=== PATIENT | male | born 1930 | race Caucasian/White ===

== ENCOUNTER → 2016-10-26 | Outpatient (CLI) | payer MEDICARE, OTHER ==
[~2016-10-26] MED LIST: CLOP75TA28 PO; SIMV5TAB38 PO; TAM04C PO; ZOLP-158 PO
[2016-10-26 09:00] LABS: Basophils # (auto) 0.2 uL; Basophils % (auto) 2.7 % (0.0-2.0); DEFINITIVE VIEW TRANSMISSION; Eosinophils # (auto) 0.4 uL; Eosinophils % (auto) 4.9 % (0.0-7.0); Hematocrit 37.7 % (41.0-53.0); Hemoglobin 12.1 g/dL (13.5-17.5); Lymphocytes # (auto) 1.4 uL; Lymphocytes % (auto) 17.1 % (10.0-50.0); Mean Corpuscular Hemoglobin 28.2 pg (28.0-32.0); Mean Corpuscular Volume 88.2 fL (80.0-100.0); Mean Platelet Volume 8.1 fL (7.4-10.4); Monocytes # (auto) 0.5 uL; Monocytes % (auto) 6.1 % (0.0-12.0); Neutrophils # (auto) 5.6 uL; Neutrophils % (auto) 69.2 % (37.0-80.0); Platelet Count (auto) 238 10^3/uL (140-450); SUSPECT VIEW TRANSMISSION; White Blood Cell 8.1 10^3/uL (4.4-10.8)
[2016-10-26 09:23] LABS: Albumin 3.9 g/dL (3.4-5.0); BUN/Creatinine Ratio 18.3; Bilirubin, Total 0.9 mg/dL (0.2-1.0); Calcium 8.7 mg/dL (8.5-10.1); Potassium 4.5 mmol/L (3.5-5.1); Total Protein 7.2 g/dL (6.4-8.2)
[2016-10-26 11:33] LABS: Anisocytosis Moderate; Ovalocytes MODERATE
[2016-10-26 11:34] LABS: Platelet Estimate Adequate
== END | disposition home or self-care (01) ==
LOC: LAB 08:17
PROVIDERS: ATTEND Internal Medicine
DX: D46.9 Myelodysplastic syndrome, unspecified (principal); D45 Polycythemia vera
CPT/HCPCS: 36415; 80053; 83615; 85025

== ENCOUNTER → 2016-11-23 | Outpatient (CLI) | payer MEDICARE, OTHER ==
[2016-11-23 12:05] LABS: Basophils # (auto) 0 uL; Basophils % (auto) 0.4 % (0.0-2.0); DEFINITIVE VIEW TRANSMISSION; Eosinophils # (auto) 0.4 uL; Eosinophils % (auto) 4.3 % (0.0-7.0); Hematocrit 41.5 % (41.0-53.0); Lymphocytes # (auto) 1.4 uL; Lymphocytes % (auto) 16.5 % (10.0-50.0); Mean Corpuscular Hemoglobin 27.5 pg (28.0-32.0); Mean Corpuscular Hgb Conc. 31.2 g/dL (32.0-36.0); Mean Corpuscular Volume 88.2 fL (80.0-100.0); Mean Platelet Volume 8.3 fL (7.4-10.4); Monocytes # (auto) 0.4 uL; Neutrophils # (auto) 6.3 uL; Neutrophils % (auto) 73.8 % (37.0-80.0); Platelet Count (auto) 262 10^3/uL (140-450); SUSPECT VIEW TRANSMISSION; White Blood Cell 8.5 10^3/uL (4.4-10.8)
[2016-11-23 12:21] LABS: Albumin 4.4 g/dL (3.4-5.0); BUN/Creatinine Ratio 19.3; Bilirubin, Total 0.8 mg/dL (0.2-1.0); Calcium 8.8 mg/dL (8.5-10.1); Total Protein 7.6 g/dL (6.4-8.2)
[2016-11-23 12:26] LABS: Potassium 4.3 mmol/L (3.5-5.1)
[2016-11-23 12:30] LABS: Red Cell Distribution Width 25.1 % (11.6-16.0)
[2016-11-23 12:31] LABS: Anisocytosis Slight; Platelet Estimate Adequate
== END | disposition home or self-care (01) ==
LOC: LAB 10:15
PROVIDERS: ATTEND Internal Medicine
DX: D46.9 Myelodysplastic syndrome, unspecified (principal); C61 Malignant neoplasm of prostate; D45 Polycythemia vera
CPT/HCPCS: 36415; 80053; 83615; 85025

== ENCOUNTER → 2017-01-25 | Outpatient (CLI) | payer MEDICARE, OTHER ==
[2017-01-25 10:11] LABS: Basophils # (auto) 0.1 uL; Basophils % (auto) 1.6 % (0.0-2.0); DEFINITIVE VIEW TRANSMISSION; Eosinophils # (auto) 0.4 uL; Eosinophils % (auto) 4.9 % (0.0-7.0); Hematocrit 37.3 % (41.0-53.0); Hemoglobin 12.3 g/dL (13.5-17.5); Lymphocytes # (auto) 1.2 uL; Lymphocytes % (auto) 13.8 % (10.0-50.0); Mean Corpuscular Hemoglobin 29.1 pg (28.0-32.0); Mean Corpuscular Hgb Conc. 33.1 g/dL (32.0-36.0); Mean Platelet Volume 7.9 fL (7.4-10.4); Monocytes # (auto) 0.4 uL; Monocytes % (auto) 4.4 % (0.0-12.0); Neutrophils # (auto) 6.6 uL; Neutrophils % (auto) 75.3 % (37.0-80.0); Platelet Count (auto) 316 10^3/uL (140-450); Red Cell Distribution Width 24.7 % (11.6-16.0); White Blood Cell 8.8 10^3/uL (4.4-10.8)
[2017-01-25 10:52] LABS: Albumin 3.9 g/dL (3.4-5.0); BUN/Creatinine Ratio 13.9; Bilirubin, Total 0.5 mg/dL (0.2-1.0); Calcium 8.4 mg/dL (8.5-10.1); Potassium 4.5 mmol/L (3.5-5.1); Total Protein 7.2 g/dL (6.4-8.2)
== END | disposition home or self-care (01) ==
LOC: LAB 09:45
PROVIDERS: ATTEND Internal Medicine
DX: D46.9 Myelodysplastic syndrome, unspecified (principal); D45 Polycythemia vera
CPT/HCPCS: 36415; 80053; 83615; 85025

== ENCOUNTER → 2017-04-12 | Outpatient (CLI) | payer MEDICARE, OTHER ==
[2017-04-12 09:20] LABS: CONDITION Y; DEFINITIVE SEE PRINTOUT; Eosinophils # (auto) 0.3 uL; Monocytes # (auto) 0.5 uL
[2017-04-12 09:30] LABS: Basophils # (auto) 0.2 uL; Basophils % (auto) 2.4 % (0.0-2.0); Eosinophils % (auto) 3.5 % (0.0-7.0); Hematocrit 38.6 % (41.0-53.0); Hemoglobin 12.6 g/dL (13.5-17.5); Lymphocytes # (auto) 1.7 uL; Lymphocytes % (auto) 19.6 % (10.0-50.0); Mean Corpuscular Hemoglobin 28.6 pg (28.0-32.0); Mean Corpuscular Hgb Conc. 32.8 g/dL (32.0-36.0); Mean Corpuscular Volume 87.4 fL (80.0-100.0); Monocytes % (auto) 5.4 % (0.0-12.0); Neutrophils # (auto) 5.9 uL; Neutrophils % (auto) 69.1 % (37.0-80.0); Platelet Count (auto) 246 10^3/uL (140-450); White Blood Cell 8.5 10^3/uL (4.4-10.8)
[2017-04-12 09:40] LABS: Albumin 3.9 g/dL (3.4-5.0); BUN/Creatinine Ratio 15.5; Bilirubin, Total 0.9 mg/dL (0.2-1.0); Calcium 8.5 mg/dL (8.5-10.1); Potassium 4.7 mmol/L (3.5-5.1); Total Protein 6.7 g/dL (6.4-8.2)
[2017-04-12 09:55] LABS: Red Cell Distribution Width 24.3 % (11.6-16.0)
[2017-04-12 10:38] LABS: Anisocytosis Slight; Ovalocytes FEW; Platelet Estimate Adequate; Polychromasia Slight
== END | disposition home or self-care (01) ==
LOC: LAB 09:05
PROVIDERS: ATTEND Internal Medicine
DX: D45 Polycythemia vera (principal); D46.9 Myelodysplastic syndrome, unspecified
CPT/HCPCS: 36415; 80053; 83615; 85025

== ENCOUNTER → 2017-06-06 | Outpatient (CLI) | payer MEDICARE, OTHER ==
[2017-06-06 09:07] LABS: Urine RBC None Seen /hpf (0 - 3)
[2017-06-06 09:19] LABS: Urine Bilirubin Negative (Negative); Urine Blood Negative /uL (Negative); Urine Color Yellow (Yellow); Urine Glucose 4+ mg/dL (Normal); Urine Ketone Negative (Negative); Urine Mucus FEW (None Seen); Urine Nitrite Negative (Negative); Urine Squamous Epithelial Cell FEW /hpf (<5); Urine Urobilinogen Normal (Negative)
[2017-06-06 11:40] LABS: Cholesterol 123 mg/dL (< 200); LDL Cholesterol 69 mg/dL (< 100); Triglycerides 82 mg/dL (< 150)
[2017-06-06 16:52] LABS: HDL Cholesterol 45 mg/dL (40-59)
== END | disposition home or self-care (01) ==
LOC: LAB 08:16
PROVIDERS: ATTEND Family Medicine
DX: E78.5 Hyperlipidemia, unspecified (principal); N18.3 Chronic kidney disease, stage 3 (moderate); D63.1 Anemia in chronic kidney disease; Z86.73 Personal history of transient ischemic attack (TIA), and cerebral infarction without residual deficits
CPT/HCPCS: 36415; 80061; 81001

== ENCOUNTER → 2017-07-11 | Outpatient (CLI) | payer MEDICARE, OTHER ==
[2017-07-11 10:52] LABS: Hematocrit 38.7 % (41.0-53.0); Hemoglobin 12.7 g/dL (13.5-17.5); Mean Corpuscular Hemoglobin 29.4 pg (28.0-32.0); Mean Corpuscular Hgb Conc. 32.9 g/dL (32.0-36.0); Mean Corpuscular Volume 89.3 fL (80.0-100.0); Platelet Count (auto) 230 10^3/uL (140-450); White Blood Cell 9.2 10^3/uL (4.4-10.8)
[2017-07-11 10:59] LABS: Red Cell Distribution Width 24.4 % (11.8-14.3)
[2017-07-11 11:01] LABS: Metamyelocytes % 0; Myelocytes % 0; Promyelocytes % 0; Reactive Lymphocytes 0
[2017-07-11 11:14] LABS: BUN/Creatinine Ratio 18.3; Bilirubin, Total 0.7 mg/dL (0.2-1.0); Calcium 8.6 mg/dL (8.5-10.1); Potassium 4.3 mmol/L (3.5-5.1); Total Protein 7.1 g/dL (6.4-8.2)
[2017-07-11 15:37] LABS: Platelet Estimate Adequate
[2017-07-11 15:38] LABS: Anisocytosis Moderate; Ovalocytes MODERATE
== END | disposition home or self-care (01) ==
LOC: LAB 10:30
PROVIDERS: ATTEND Internal Medicine
DX: Z13.29 Encounter for screening for other suspected endocrine disorder (principal); D46.9 Myelodysplastic syndrome, unspecified; D45 Polycythemia vera; N18.3 Chronic kidney disease, stage 3 (moderate); D63.1 Anemia in chronic kidney disease; C18.9 Malignant neoplasm of colon, unspecified
CPT/HCPCS: 36415; 80053; 82378; 83615; 85007; 85027

== ENCOUNTER → 2017-10-05 | Outpatient (CLI) | payer MEDICARE, OTHER ==
[2017-10-05 13:55] LABS: Basophils # (auto) 0.3 uL; Basophils % (auto) 3.2 % (0.0-2.0); Eosinophils # (auto) 0.3 uL; Eosinophils % (auto) 3.5 % (0.0-7.0); Hematocrit 39.7 % (41.0-53.0); Hemoglobin 13.2 g/dL (13.5-17.5); Lymphocytes # (auto) 1.3 uL; Lymphocytes % (auto) 15.5 % (10.0-50.0); Mean Corpuscular Hemoglobin 29.1 pg (28.0-32.0); Mean Corpuscular Hgb Conc. 33.4 g/dL (32.0-36.0); Mean Corpuscular Volume 87.2 fL (80.0-100.0); Mean Platelet Volume 7.5 fL (6.9-10.8); Monocytes # (auto) 0.6 uL; Monocytes % (auto) 7.6 % (0.0-12.0); Neutrophils % (auto) 70.2 % (37.0-80.0); Nucleated Red Blood Cells % 0.5 %; Platelet Count (auto) 220 10^3/uL (140-450); White Blood Cell 8.5 10^3/uL (4.4-10.8)
[2017-10-05 14:03] LABS: Red Cell Distribution Width 24.6 % (11.8-14.3)
[2017-10-05 14:25] LABS: Albumin 4.1 g/dL (3.4-5.0); BUN/Creatinine Ratio 18.1; Bilirubin, Total 0.8 mg/dL (0.2-1.0); Calcium 8.5 mg/dL (8.5-10.1); Total Protein 7.1 g/dL (6.4-8.2)
[2017-10-05 14:32] LABS: Platelet Estimate Adequa
[2017-10-05 14:46] LABS: Anisocytosis Slight
== END | disposition home or self-care (01) ==
LOC: LAB 13:34
PROVIDERS: ATTEND Internal Medicine
DX: C16.1 Malignant neoplasm of fundus of stomach (principal)
CPT/HCPCS: 36415; 80053; 83615; 85025

== ENCOUNTER → 2017-12-21 | Day surgery (SDC) | payer MEDICARE, OTHER ==
[2017-12-18 16:20] LABS: Basophils # (auto) 0.4 uL; Eosinophils # (auto) 0.4 uL; Eosinophils % (auto) 3.9 % (0.0-7.0); Hematocrit 40.9 % (41.0-53.0); Hemoglobin 13.7 g/dL (13.5-17.5); Lymphocytes # (auto) 1.2 uL; Lymphocytes % (auto) 13.9 % (10.0-50.0); Mean Corpuscular Hemoglobin 29.3 pg (28.0-32.0); Mean Corpuscular Hgb Conc. 33.6 g/dL (32.0-36.0); Mean Corpuscular Volume 87.4 fL (80.0-100.0); Monocytes # (auto) 0.8 uL; Monocytes % (auto) 8.8 % (0.0-12.0); Neutrophils # (auto) 6.2 uL; Neutrophils % (auto) 69.4 % (37.0-80.0); Nucleated Red Blood Cells % 0.5 %; Platelet Count (auto) 236 10^3/uL (140-450); Red Blood Cells 4.69 10^6/uL (4.5-5.90); White Blood Cell 8.9 10^3/uL (4.4-10.8)
[2017-12-18 16:24] LABS: Red Cell Distribution Width 24.4 % (11.8-14.3)
[2017-12-18 16:40] LABS: INR 0.96 (0.9-1.15); Prothrombin Time 10.5 sec (9.37-12.3)
[~2017-12-21] VITALS: Ht 177.8 cm; Wt 83.9 kg
[~2017-12-21] MED LIST changes: +DORZ1SOL2 OP; +LATA0.0015 EACHEYE; +MIDAZOLAM HCL 5 MG/ML-1ML VIAL ONE; +SIMV20TA90 PO; -SIMV5TAB38 PO; +SODIUM CHLORIDE LOCK 10 ML ONE; +TADA20TA PO; -ZOLP-158 PO; +ZOLP10TA PO; +diphenhdrAMINE HCL 50 MG/1 ML VL ONE; +fentaNYL CITRATE 100 MCG/2 ML VL ONE
[2017-12-21 10:33] VITALS: BP 135/75
== END | disposition home or self-care (01) ==
LOC: GI 08:11
PROVIDERS: ATTEND Internal Medicine Gastroenterology
DX: Z08 Encounter for follow-up examination after completed treatment for malignant neoplasm (principal); K57.30 Diverticulosis of large intestine without perforation or abscess without bleeding; Z85.038 Personal history of other malignant neoplasm of large intestine; Z88.1 Allergy status to other antibiotic agents; Z90.49 Acquired absence of other specified parts of digestive tract; E66.9 Obesity, unspecified; H40.9 Unspecified glaucoma; N18.2 Chronic kidney disease, stage 2 (mild); Z88.0 Allergy status to penicillin
CPT/HCPCS: 36415; 45380; 85025; 85610; J1200; J2250; J3010; 99152

== ENCOUNTER → 2018-01-02 | Outpatient (CLI) | payer MEDICARE, OTHER ==
[~2018-01-02] MED LIST changes: -MIDAZOLAM HCL 5 MG/ML-1ML VIAL ONE; -SODIUM CHLORIDE LOCK 10 ML ONE; -diphenhdrAMINE HCL 50 MG/1 ML VL ONE; -fentaNYL CITRATE 100 MCG/2 ML VL ONE
[2018-01-02 10:36] LABS: Hematocrit 39.9 % (41.0-53.0); Hemoglobin 13.5 g/dL (13.5-17.5); Mean Corpuscular Hemoglobin 28.7 pg (28.0-32.0); Mean Corpuscular Hgb Conc. 33.8 g/dL (32.0-36.0); Mean Corpuscular Volume 84.9 fL (80.0-100.0); Platelet Count (auto) 301 10^3/uL (140-450); White Blood Cell 8.2 10^3/uL (4.4-10.8)
[2018-01-02 10:46] LABS: Red Cell Distribution Width 24.8 % (11.8-14.3)
[2018-01-02 10:53] LABS: Basophils % (manual) 0 (0.0-2.0); Metamyelocytes % 0; Myelocytes % 0; Promyelocytes % 0; Reactive Lymphocytes 0
[2018-01-02 10:54] LABS: Blast Cells 0
[2018-01-02 11:10] LABS: Albumin 4.3 g/dL (3.4-5.0); BUN/Creatinine Ratio 15.3; Bilirubin, Total 0.6 mg/dL (0.2-1.0); Calcium 8.7 mg/dL (8.5-10.1); Potassium 4.6 mmol/L (3.5-5.1); Total Protein 7.7 g/dL (6.4-8.2)
[2018-01-02 14:59] LABS: Band Neutrophils % (manual) 6; Eosinophils % (manual) 5 (0-7); Lymphocytes % (manual) 23 (10.0-50.0); Monocytes % (manual) 6 (0-12)
== END | disposition home or self-care (01) ==
LOC: LAB 10:15
PROVIDERS: ATTEND Internal Medicine
DX: C61 Malignant neoplasm of prostate (principal)
CPT/HCPCS: 36415; 80053; 83615; 85007; 85027

== ENCOUNTER → 2018-04-10 | Outpatient (CLI) | payer MEDICARE, OTHER ==
[2018-04-10 10:06] LABS: Hematocrit 39.7 % (41.0-53.0); Hemoglobin 13.2 g/dL (13.5-17.5); Mean Corpuscular Hemoglobin 27.6 pg (28.0-32.0); Mean Corpuscular Hgb Conc. 33.1 g/dL (32.0-36.0); Mean Corpuscular Volume 83.2 fL (80.0-100.0); Platelet Count (auto) 202 10^3/uL (140-450); Red Blood Cells 4.77 10^6/uL (4.5-5.90); White Blood Cell 7.8 10^3/uL (4.4-10.8)
[2018-04-10 10:13] LABS: Basophils % (manual) 0 (0.0-2.0); Blast Cells 0; Metamyelocytes % 0; Myelocytes % 0; Promyelocytes % 0; Reactive Lymphocytes 0
[2018-04-10 10:25] LABS: Band Neutrophils % (manual) 2; Eosinophils % (manual) 1 (0-7); Lymphocytes % (manual) 15 (10.0-50.0); Monocytes % (manual) 4 (0-12)
[2018-04-10 11:25] LABS: BUN/Creatinine Ratio 16.8; Bilirubin, Total 0.7 mg/dL (0.2-1.0); Calcium 8.6 mg/dL (8.5-10.1); Potassium 4.8 mmol/L (3.5-5.1); Total Protein 7.2 g/dL (6.4-8.2)
== END | disposition home or self-care (01) ==
LOC: LAB 09:22
PROVIDERS: ATTEND Internal Medicine
DX: C61 Malignant neoplasm of prostate (principal); N18.3 Chronic kidney disease, stage 3 (moderate)
CPT/HCPCS: 36415; 80053; 83615; 85007; 85027

== ENCOUNTER → 2018-07-03 | Outpatient (CLI) | payer MEDICARE, OTHER ==
[2018-07-03 09:16] LABS: Urine Bacteria NONE SEEN /hpf (None Seen); Urine Blood Negative /uL (Negative); Urine Mucus FEW (None Seen); Urine Specific Gravity 1.038 (1.001-1.035); Urine WBC <1 /hpf (0 - 3)
[2018-07-03 09:17] LABS: Basophils # (auto) 0.2 uL; Basophils % (auto) 3.3 % (0.0-2.0); Eosinophils # (auto) 0.2 uL; Eosinophils % (auto) 2.3 % (0.0-7.0); Hematocrit 38.3 % (41.0-53.0); Hemoglobin 13.1 g/dL (13.5-17.5); Lymphocytes # (auto) 0.9 uL; Lymphocytes % (auto) 13.3 % (10.0-50.0); Mean Corpuscular Hgb Conc. 34.1 g/dL (32.0-36.0); Monocytes # (auto) 0.6 uL; Neutrophils # (auto) 5.2 uL; Neutrophils % (auto) 73.1 % (37.0-80.0); Nucleated Red Blood Cells % 0.3 %; Platelet Count (auto) 134 10^3/uL (140-450); Red Blood Cells 4.67 10^6/uL (4.5-5.90); White Blood Cell 7.1 10^3/uL (4.4-10.8)
[2018-07-03 09:23] LABS: Red Cell Distribution Width 24.9 % (11.8-14.3)
[2018-07-03 11:30] LABS: BUN/Creatinine Ratio 16.3; Bilirubin, Total 0.9 mg/dL (0.2-1.0); Calcium 8.8 mg/dL (8.5-10.1); Potassium 4.8 mmol/L (3.5-5.1); Total Protein 7.3 g/dL (6.4-8.2)
== END | disposition home or self-care (01) ==
LOC: LAB 08:48
PROVIDERS: ATTEND Internal Medicine
DX: C61 Malignant neoplasm of prostate (principal); I10 Essential (primary) hypertension; D46.9 Myelodysplastic syndrome, unspecified; C18.9 Malignant neoplasm of colon, unspecified
CPT/HCPCS: 36415; 80053; 80061; 81001; 83615; 84153; 84154; 85025

== ENCOUNTER → 2018-08-12 | Outpatient (CLI) | payer MEDICARE, OTHER ==
[2018-08-12 12:51] LABS: Hemoglobin 11.7 g/dL (13.5-17.5); Mean Corpuscular Hemoglobin 27.2 pg (28.0-32.0); Mean Corpuscular Hgb Conc. 33.4 g/dL (32.0-36.0); Mean Corpuscular Volume 81.5 fL (80.0-100.0); Platelet Count (auto) 152 10^3/uL (140-450); White Blood Cell 7.4 10^3/uL (4.4-10.8)
[2018-08-12 12:56] LABS: Red Cell Distribution Width 25.4 % (11.8-14.3)
[2018-08-12 12:57] LABS: Basophils % (manual) 0 (0.0-2.0); Blast Cells 0; Myelocytes % 0; Promyelocytes % 0; Reactive Lymphocytes 0
[2018-08-12 13:00] LABS: Potassium 4.4 mmol/L (3.5-5.1)
[2018-08-12 13:26] LABS: Albumin 3.8 g/dL (3.4-5.0); BUN/Creatinine Ratio 16.8; Bilirubin, Total 0.9 mg/dL (0.2-1.0); Calcium 8.7 mg/dL (8.5-10.1); Total Protein 7.8 g/dL (6.4-8.2)
[2018-08-12 13:33] LABS: Band Neutrophils % (manual) 2; Eosinophils % (manual) 2 (0-7); Lymphocytes % (manual) 11 (10.0-50.0); Metamyelocytes % 1; Monocytes % (manual) 3 (0-12)
== END | disposition home or self-care (01) ==
LOC: LAB 11:13
PROVIDERS: ATTEND Internal Medicine
DX: D45 Polycythemia vera (principal); Z85.46 Personal history of malignant neoplasm of prostate
CPT/HCPCS: 36415; 80053; 82378; 83615; 85007; 85027

== ENCOUNTER → 2018-09-23 | Outpatient (CLI) | payer MEDICARE, OTHER ==
[2018-09-23 12:51] LABS: INR 1.03 (0.9-1.15)
[2018-09-23 12:53] LABS: Red Blood Cells 4.36 10^6/uL (4.5-5.90)
[2018-09-23 12:55] LABS: Hematocrit 34.5 % (41.0-53.0); Hemoglobin 11.5 g/dL (13.5-17.5); Mean Corpuscular Hemoglobin 26.4 pg (28.0-32.0); Mean Corpuscular Hgb Conc. 33.3 g/dL (32.0-36.0); Mean Corpuscular Volume 79.1 fL (80.0-100.0); Platelet Count (auto) 213 10^3/uL (140-450); White Blood Cell 6.1 10^3/uL (4.4-10.8)
[2018-09-23 13:17] LABS: Potassium 4.7 mmol/L (3.5-5.1)
[2018-09-23 13:32] LABS: Albumin 3.8 g/dL (3.4-5.0); BUN/Creatinine Ratio 14.4; Bilirubin, Total 0.9 mg/dL (0.2-1.0); Calcium 8.7 mg/dL (8.5-10.1); Total Protein 7.2 g/dL (6.4-8.2)
[2018-09-23 13:42] LABS: Red Cell Distribution Width 25.9 % (11.8-14.3)
[2018-09-23 13:44] LABS: Basophils % (manual) 0 (0.0-2.0); Blast Cells 0; Metamyelocytes % 0; Myelocytes % 0; Promyelocytes % 0; Reactive Lymphocytes 0
[2018-09-23 14:39] LABS: Band Neutrophils % (manual) 5; Eosinophils % (manual) 4 (0-7); Lymphocytes % (manual) 14 (10.0-50.0); Monocytes % (manual) 2 (0-12)
== END | disposition home or self-care (01) ==
LOC: LAB 11:39
PROVIDERS: ATTEND Internal Medicine
DX: D45 Polycythemia vera (principal)
CPT/HCPCS: 36415; 80053; 83615; 85007; 85027; 85610; 85730

== ENCOUNTER → 2018-11-14 | Outpatient (CLI) | payer MEDICARE, OTHER ==
[2018-11-14 10:02] LABS: Hemoglobin 11.8 g/dL (13.5-17.5)
[2018-11-14 10:05] LABS: Hematocrit 35.1 % (41.0-53.0); Mean Corpuscular Hemoglobin 25.8 pg (28.0-32.0); Mean Corpuscular Hgb Conc. 33.7 g/dL (32.0-36.0); Mean Corpuscular Volume 76.5 fL (80.0-100.0); Platelet Count (auto) 55 10^3/uL (140-450); Red Blood Cells 4.59 10^6/uL (4.5-5.90); White Blood Cell 7.7 10^3/uL (4.4-10.8)
[2018-11-14 10:20] LABS: Basophils % (manual) 0 (0.0-2.0); Blast Cells 0; Metamyelocytes % 0; Myelocytes % 0; Promyelocytes % 0; Reactive Lymphocytes 0
[2018-11-14 10:21] LABS: Urine Bacteria NONE SEEN /hpf (None Seen); Urine Blood Negative /uL (Negative); Urine Hyaline Cast FEW /lpf (0 - 2); Urine Mucus FEW (None Seen); Urine Specific Gravity 1.033 (1.001-1.035); Urine WBC 1 /hpf (0 - 3)
[2018-11-14 10:47] LABS: Chloride 110 mmol/L (98-107); Potassium 4.6 mmol/L (3.5-5.1); Sodium 140 mmol/L (136-145)
[2018-11-14 11:00] LABS: Alanine Aminotransferase 20 U/L (16-61); Albumin 3.9 g/dL (3.4-5.0); Alkaline Phosphatase 65 U/L (45-117); Anion Gap 6 (5-15); Aspartate Aminotransferase 17 U/L (15-37); BUN/Creatinine Ratio 17.8; Bilirubin, Total 0.7 mg/dL (0.2-1.0); Blood Urea Nitrogen 24 mg/dL (7-18); Calcium 8.8 mg/dL (8.5-10.1); Carbon Dioxide 24 mmol/L (21-32); Cholesterol 146 mg/dL (< 200); GFR Non-African American 53 mL/min; Glucose 107 mg/dL (74-106); HDL Cholesterol 50 mg/dL (40-59); LDL Cholesterol 82 mg/dL (< 100); Lactate Dehydrogenase 300 U/L (87-241); Total Protein 7.1 g/dL (6.4-8.2); Triglycerides 147 mg/dL (< 150)
[2018-11-14 11:03] LABS: GFR African American > 60 mL/min
[2018-11-14 11:45] LABS: Band Neutrophils % (manual) 3; Eosinophils % (manual) 2 (0-7); Lymphocytes % (manual) 23 (10.0-50.0); Monocytes % (manual) 6 (0-12)
== END | disposition home or self-care (01) ==
LOC: LAB 09:21
PROVIDERS: ATTEND Internal Medicine
DX: C61 Malignant neoplasm of prostate (principal); D45 Polycythemia vera; E78.5 Hyperlipidemia, unspecified
CPT/HCPCS: 36415; 80053; 80061; 81001; 83615; 84443; 85007; 85027

== ENCOUNTER → 2018-11-21 | Outpatient (CLI) | payer MEDICARE, OTHER ==
[2018-11-21 10:33] LABS: Basophils % (manual) 0 (0.0-2.0); Blast Cells 0; Myelocytes % 0; Promyelocytes % 0; Reactive Lymphocytes 0
[2018-11-21 10:46] LABS: White Blood Cell 7.8 10^3/uL (4.4-10.8)
[2018-11-21 10:48] LABS: Hematocrit 36.5 % (41.0-53.0); Hemoglobin 12.3 g/dL (13.5-17.5); Mean Corpuscular Hemoglobin 25.6 pg (28.0-32.0); Mean Corpuscular Hgb Conc. 33.6 g/dL (32.0-36.0); Mean Corpuscular Volume 76.2 fL (80.0-100.0); Platelet Count (auto) 56 10^3/uL (140-450)
[2018-11-21 13:04] LABS: Band Neutrophils % (manual) 5; Eosinophils % (manual) 1 (0-7); Lymphocytes % (manual) 25 (10.0-50.0); Metamyelocytes % 5; Monocytes % (manual) 2 (0-12)
== END | disposition home or self-care (01) ==
LOC: LAB 10:25
PROVIDERS: ATTEND Internal Medicine
DX: D45 Polycythemia vera (principal)
CPT/HCPCS: 36415; 85007; 85027

== ENCOUNTER → 2018-11-26 | Outpatient (CLI) | payer MEDICARE, OTHER ==
[2018-11-26 11:18] LABS: Hemoglobin 11.8 g/dL (13.5-17.5)
[2018-11-26 11:22] LABS: Hematocrit 35.3 % (41.0-53.0); Mean Corpuscular Hemoglobin 25.3 pg (28.0-32.0); Mean Corpuscular Hgb Conc. 33.3 g/dL (32.0-36.0); Platelet Count (auto) 47 10^3/uL (140-450); Red Blood Cells 4.65 10^6/uL (4.5-5.90); White Blood Cell 7.3 10^3/uL (4.4-10.8)
[2018-11-26 12:31] LABS: Basophils % (manual) 0 (0.0-2.0); Blast Cells 0; Myelocytes % 0; Promyelocytes % 0; Reactive Lymphocytes 0; Red Cell Distribution Width 27.2 % (11.8-14.3)
[2018-11-26 13:30] LABS: Band Neutrophils % (manual) 2; Eosinophils % (manual) 1 (0-7); Lymphocytes % (manual) 20 (10.0-50.0); Metamyelocytes % 3; Monocytes % (manual) 9 (0-12)
== END | disposition home or self-care (01) ==
LOC: LAB 11:01
PROVIDERS: ATTEND Internal Medicine
DX: D46.9 Myelodysplastic syndrome, unspecified (principal)
CPT/HCPCS: 36415; 85007; 85027

== ENCOUNTER → 2018-12-03 | Outpatient (CLI) | payer MEDICARE, OTHER ==
[2018-12-03 09:37] LABS: Mean Corpuscular Hemoglobin 25.7 pg (28.0-32.0)
[2018-12-03 09:40] LABS: Hematocrit 34.3 % (41.0-53.0); Hemoglobin 11.4 g/dL (13.5-17.5); Mean Corpuscular Hgb Conc. 33.2 g/dL (32.0-36.0); Mean Corpuscular Volume 77.3 fL (80.0-100.0); Platelet Count (auto) 43 10^3/uL (140-450); Red Blood Cells 4.44 10^6/uL (4.5-5.90); White Blood Cell 7.3 10^3/uL (4.4-10.8)
[2018-12-03 09:47] LABS: Red Cell Distribution Width 27.3 % (11.8-14.3)
[2018-12-03 09:49] LABS: Blast Cells 0; Promyelocytes % 0; Reactive Lymphocytes 0
[2018-12-03 11:08] LABS: Band Neutrophils % (manual) 7; Basophils % (manual) 1 (0.0-2.0); Eosinophils % (manual) 2 (0-7); Lymphocytes % (manual) 30 (10.0-50.0); Metamyelocytes % 2; Monocytes % (manual) 5 (0-12); Myelocytes % 2
== END | disposition home or self-care (01) ==
LOC: LAB 09:27
PROVIDERS: ATTEND Internal Medicine
DX: D64.9 Anemia, unspecified (principal)
CPT/HCPCS: 36415; 85007; 85027

== ENCOUNTER → 2018-12-19 | Outpatient (CLI) | payer MEDICARE, OTHER ==
[2018-12-19 08:26] LABS: White Blood Cell 6.6 10^3/uL (4.4-10.8)
[2018-12-19 08:29] LABS: Hematocrit 32.8 % (41.0-53.0); Hemoglobin 11.1 g/dL (13.5-17.5); Mean Corpuscular Hemoglobin 25.5 pg (28.0-32.0); Mean Corpuscular Hgb Conc. 33.7 g/dL (32.0-36.0); Mean Corpuscular Volume 75.7 fL (80.0-100.0); Platelet Count (auto) 40 10^3/uL (140-450); Red Blood Cells 4.33 10^6/uL (4.5-5.90)
[2018-12-19 08:32] LABS: Red Cell Distribution Width 27.8 % (11.8-14.3)
[2018-12-19 08:34] LABS: Blast Cells 0; Metamyelocytes % 0; Myelocytes % 0; Promyelocytes % 0; Reactive Lymphocytes 0
[2018-12-19 09:43] LABS: Band Neutrophils % (manual) 5; Basophils % (manual) 1 (0.0-2.0); Eosinophils % (manual) 1 (0-7); Lymphocytes % (manual) 20 (10.0-50.0); Monocytes % (manual) 2 (0-12)
== END | disposition home or self-care (01) ==
LOC: LAB 08:09
PROVIDERS: ATTEND Internal Medicine
DX: D46.9 Myelodysplastic syndrome, unspecified (principal); R16.2 Hepatomegaly with splenomegaly, not elsewhere classified; D45 Polycythemia vera; E78.00 Pure hypercholesterolemia, unspecified; N28.9 Disorder of kidney and ureter, unspecified; Z85.048 Personal history of other malignant neoplasm of rectum, rectosigmoid junction, and anus
CPT/HCPCS: 36415; 85007; 85027

== ENCOUNTER → 2018-12-27 | Outpatient (CLI) | payer MEDICARE, OTHER ==
[2018-12-27 08:59] LABS: Hematocrit 35.5 % (41.0-53.0); Red Blood Cells 4.67 10^6/uL (4.5-5.90)
[2018-12-27 09:01] LABS: Hemoglobin 11.8 g/dL (13.5-17.5); Mean Corpuscular Hemoglobin 25.2 pg (28.0-32.0); Mean Corpuscular Hgb Conc. 33.2 g/dL (32.0-36.0); Platelet Count (auto) 64 10^3/uL (140-450); White Blood Cell 12.7 10^3/uL (4.4-10.8)
[2018-12-27 09:22] LABS: Potassium 4.3 mmol/L (3.5-5.1)
[2018-12-27 09:23] LABS: Red Cell Distribution Width 28.7 % (11.8-14.3)
[2018-12-27 09:25] LABS: Basophils % (manual) 0 (0.0-2.0); Blast Cells 0; Myelocytes % 0; Promyelocytes % 0; Reactive Lymphocytes 0
[2018-12-27 09:29] LABS: Albumin 3.8 g/dL (3.4-5.0); BUN/Creatinine Ratio 29.7; Calcium 8.3 mg/dL (8.5-10.1); Total Protein 6.9 g/dL (6.4-8.2)
[2018-12-27 14:23] LABS: Band Neutrophils % (manual) 6; Eosinophils % (manual) 3 (0-7); Lymphocytes % (manual) 11 (10.0-50.0); Metamyelocytes % 3; Monocytes % (manual) 16 (0-12)
== END | disposition home or self-care (01) ==
LOC: LAB 08:38
PROVIDERS: ATTEND Internal Medicine
DX: C18.9 Malignant neoplasm of colon, unspecified (principal); D45 Polycythemia vera
CPT/HCPCS: 36415; 80053; 83615; 85007; 85027

== ENCOUNTER → 2019-01-09 | Outpatient (CLI) | payer MEDICARE, OTHER ==
[2019-01-09 09:07] LABS: Hemoglobin 11.9 g/dL (13.5-17.5)
[2019-01-09 09:10] LABS: Hematocrit 35.6 % (41.0-53.0); Mean Corpuscular Hemoglobin 25.7 pg (28.0-32.0); Mean Corpuscular Hgb Conc. 33.4 g/dL (32.0-36.0); Platelet Count (auto) 60 10^3/uL (140-450); Red Blood Cells 4.62 10^6/uL (4.5-5.90); White Blood Cell 14.2 10^3/uL (4.4-10.8)
[2019-01-09 09:26] LABS: Blast Cells 0; Myelocytes % 0; Promyelocytes % 0; Reactive Lymphocytes 0
[2019-01-09 09:54] LABS: Band Neutrophils % (manual) 8; Basophils % (manual) 1 (0.0-2.0); Eosinophils % (manual) 2 (0-7); Lymphocytes % (manual) 9 (10.0-50.0); Metamyelocytes % 2; Monocytes % (manual) 13 (0-12)
== END | disposition home or self-care (01) ==
LOC: LAB 08:57
PROVIDERS: ATTEND Internal Medicine
DX: D46.9 Myelodysplastic syndrome, unspecified (principal); R97.20 Elevated prostate specific antigen [PSA]
CPT/HCPCS: 36415; 84154; 85007; 85027

== ENCOUNTER 2019-01-19 09:11 | Inpatient (IN) | payer MEDICARE, OTHER ==
[~2019-01-19] VITALS: Ht 177.8 cm; Wt 71.4 kg
[2019-01-19 10:16] LABS: Hematocrit 37.8 % (41.0-53.0); Hemoglobin 12.3 g/dL (13.5-17.5); Mean Corpuscular Hemoglobin 25.9 pg (28.0-32.0); Mean Corpuscular Hgb Conc. 32.5 g/dL (32.0-36.0); Mean Corpuscular Volume 79.7 fL (80.0-100.0); Platelet Count (auto) 64 10^3/uL (140-450); Red Blood Cells 4.74 10^6/uL (4.5-5.90); White Blood Cell 15.9 10^3/uL (4.4-10.8)
[2019-01-19 10:17] LABS: Red Cell Distribution Width 32.5 % (11.8-14.3)
[2019-01-19 10:18] LABS: Basophils % (manual) 0 (0.0-2.0); Blast Cells 0; Promyelocytes % 0; Reactive Lymphocytes 0
[2019-01-19 10:24] LABS: Albumin 3.8 g/dL (3.4-5.0); Anion Gap 7 (5-15); Blood Urea Nitrogen 49 mg/dL (7-18); Calcium 8.1 mg/dL (8.5-10.1); Carbon Dioxide 25 mmol/L (21-32); Chloride 107 mmol/L (98-107); Glucose 128 mg/dL (74-106); Potassium 4.3 mmol/L (3.5-5.1); Sodium 139 mmol/L (136-145)
[2019-01-19 10:30] LABS: Alanine Aminotransferase 30 U/L (16-61); Alkaline Phosphatase 53 U/L (45-117); Aspartate Aminotransferase 12 U/L (15-37); Bilirubin, Total 1.4 mg/dL (0.2-1.0); GFR African American 64 mL/min; GFR Non-African American 53 mL/min; Total Protein 6.5 g/dL (6.4-8.2)
[2019-01-19] MEDS ORDERED: SODIUM CHLORIDE 0.9% 1,000 ML IV ONE ×4 (11:29→13:25)
[2019-01-19] MEDS ORDERED: MORPHINE SULF INJ 2 MG/ML SYRINGE 1ML IV ONE (11:30)
[2019-01-19] MEDS ORDERED: ONDANSETRON HCL 4 MG/2 ML VIAL IV ONE (11:30)
[2019-01-19 12:22] LABS: Lactic Acid w/Reflex 3.6 mmol/L (0.4-2.0)
[2019-01-19 13:14] LABS: Band Neutrophils % (manual) 9; Eosinophils % (manual) 2 (0-7); Lymphocytes % (manual) 8 (10.0-50.0); Metamyelocytes % 2; Monocytes % (manual) 8 (0-12); Myelocytes % 2
[2019-01-19] MEDS ORDERED: NITROGLYCERIN 0.4 MG SL TAB SL PRN (13:15)
[2019-01-19] MEDS ORDERED: MULTIPLE VITAMIN 10 ML, MAGNESIUM SULF SDV 50% 8 MEQ in D5W/SOD CHL 0.45% 1,000 ML IV SCH (13:15)
[2019-01-19] MEDS ORDERED: MORPHINE SULF INJ 2 MG/ML SYRINGE 1ML IV PRN (13:15)
[2019-01-19] MEDS ORDERED: PIPERACILLIN-TAZOB 3.375GM 100 ML IV ONE (13:30)
[2019-01-19] MEDS ORDERED: VANCOMYCIN 1GM/250ML 250 ML IV ONE (13:30)
[2019-01-19] MEDS ORDERED: GASTROGRAFIN 120 ML SOL ONE (13:42)
[2019-01-19] MEDS: MORPHINE SULF INJ 2 MG/ML SYRINGE 1ML IV PRN ×2 (14:55→19:55)
[2019-01-19] MEDS: ONDANSETRON HCL 4 MG/2 ML VIAL IV PRN ×2 (14:55→19:55)
[2019-01-19] MEDS: SODIUM CHLORIDE 0.9% 1,000 ML IV SCH ×2 (14:56→23:15)
[2019-01-19 15:58] LABS: INR 0.91 (0.9-1.15); Partial Thromboplastin Time 20.8 sec (23.78-33.04); Prothrombin Time 9.8 sec (9.27-12.13)
[2019-01-19 17:45] VITALS: BP 148/73
[2019-01-19] MEDS: metroNIDAZOLE 500MG/100ML 100 ML IV SCH (19:58)
[2019-01-19] MEDS: methylPREDNISolone SOD SUCC 125 MG/2 ML VL IV SCH (21:52)
[2019-01-19 22:00] VITALS: BP 154/68
[2019-01-20] MEDS: ONDANSETRON HCL 4 MG/2 ML VIAL IV PRN ×3 (00:17→11:05)
[2019-01-20] MEDS: metroNIDAZOLE 500MG/100ML 100 ML IV SCH ×4 (00:17→18:00)
[2019-01-20] MEDS: MORPHINE SULF INJ 2 MG/ML SYRINGE 1ML IV PRN ×3 (00:18→11:05)
[2019-01-20 05:00] VITALS: BP 138/79
[2019-01-20 07:15] LABS: Calcium 7.6 mg/dL (8.5-10.1); Potassium 4.6 mmol/L (3.5-5.1)
[2019-01-20 07:24] LABS: Hematocrit 37.1 % (41.0-53.0); Hemoglobin 12.4 g/dL (13.5-17.5); Mean Corpuscular Hemoglobin 26.3 pg (28.0-32.0); Mean Corpuscular Hgb Conc. 33.5 g/dL (32.0-36.0); Mean Corpuscular Volume 78.5 fL (80.0-100.0); Platelet Count (auto) 64 10^3/uL (140-450); Red Blood Cells 4.72 10^6/uL (4.5-5.90); White Blood Cell 20.9 10^3/uL (4.4-10.8)
[2019-01-20 07:38] LABS: Red Cell Distribution Width 32.2 % (11.8-14.3)
[2019-01-20 07:39] LABS: Basophils % (manual) 0 (0.0-2.0); Blast Cells 0; Myelocytes % 0; Promyelocytes % 0; Reactive Lymphocytes 0
[2019-01-20] MEDS ORDERED: PPN PER PHARMACY 0 ML IV SCH (08:15)
[2019-01-20 08:40] LABS: Magnesium 3.1 mg/dL (1.6-2.6); Phosphorus 6.6 mg/dL (2.5-4.90)
[2019-01-20 08:44] LABS: Pre Albumin 39.2 mg/dL (20.0-40.0)
[2019-01-20 09:00] VITALS: BP 140/80
[2019-01-20 09:45] LABS: Band Neutrophils % (manual) 6; Eosinophils % (manual) 2 (0-7); Lymphocytes % (manual) 3 (10.0-50.0); Metamyelocytes % 1; Monocytes % (manual) 14 (0-12)
[2019-01-20] MEDS: methylPREDNISolone SOD SUCC 125 MG/2 ML VL IV SCH ×2 (11:05→21:36)
[2019-01-20] MEDS ORDERED: SODIUM CHLORIDE 0.9% 1,000 ML IV SCH (11:30)
[2019-01-20] MEDS ORDERED: POM (11:44)
[2019-01-20] MEDS ORDERED: PRE5T PO (11:44)
[2019-01-20] MEDS ORDERED: CALCIUM GLUC 4.65meq/50ml D5AE 50 ML IV ONE (11:45)
[2019-01-20] MEDS ORDERED: LEVOFLOXACIN 250MG 50 ML IV ONE (11:45)
[2019-01-20 13:00] VITALS: BP 135/69
[2019-01-20] MEDS: SODIUM CHLORIDE 0.9% 1,000 ML IV SCH ×2 (13:15→23:15)
[2019-01-20 17:00] VITALS: BP 152/79
[2019-01-20] MEDS ORDERED: PPN PER PHARMACY IV NR ×7 (20:00)
[2019-01-20] MEDS ORDERED: DEXTROSE (50%) 50ML SYRG IV SCH (20:00)
[2019-01-20] MEDS: InsuLIN REG 1unit/0.01ml Soln (100units/ml) SC SCH (20:00)
[2019-01-20] MEDS: ACCU-CHEK COMFORT CURVE STRIP VI SCH (20:08)
[2019-01-20 23:02] VITALS: BP 135/67
[2019-01-21] MEDS: ACCU-CHEK COMFORT CURVE STRIP VI SCH ×4 (00:05→17:33)
[2019-01-21] MEDS: metroNIDAZOLE 500MG/100ML 100 ML IV SCH ×4 (00:05→17:33)
[2019-01-21 04:54] VITALS: BP 130/73
[2019-01-21] MEDS: InsuLIN REG 1unit/0.01ml Soln (100units/ml) SC SCH ×4 (06:00→17:33)
[2019-01-21 06:56] LABS: Basophils # (auto) 0 uL; Eosinophils # (auto) 0 uL; Eosinophils % (auto) 0.1 % (0.0-7.0); Lymphocytes # (auto) 0.5 uL; Mean Corpuscular Hemoglobin 26.3 pg (28.0-32.0); Platelet Count (auto) 51 10^3/uL (140-450)
[2019-01-21 06:59] LABS: Basophils % (auto) 0.2 % (0.0-2.0); Hematocrit 32.6 % (41.0-53.0); Hemoglobin 10.8 g/dL (13.5-17.5); Lymphocytes % (auto) 2.9 % (10.0-50.0); Mean Corpuscular Volume 79.9 fL (80.0-100.0); Monocytes # (auto) 1.2 uL; Monocytes % (auto) 7.6 % (0.0-12.0); Neutrophils % (auto) 89.2 % (37.0-80.0); Nucleated Red Blood Cells % 0.5 %; Red Blood Cells 4.09 10^6/uL (4.5-5.90); White Blood Cell 15.6 10^3/uL (4.4-10.8)
[2019-01-21 07:05] LABS: Red Cell Distribution Width 31.9 % (11.8-14.3)
[2019-01-21 07:12] LABS: Albumin 3.2 g/dL (3.4-5.0); Calcium 7.5 mg/dL (8.5-10.1); Magnesium 3.3 mg/dL (1.6-2.6); Potassium 3.8 mmol/L (3.5-5.1)
[2019-01-21 07:15] LABS: Bilirubin, Total 1.3 mg/dL (0.2-1.0); Phosphorus 3.9 mg/dL (2.5-4.90); Total Protein 5.9 g/dL (6.4-8.2)
[2019-01-21 07:20] LABS: BUN/Creatinine Ratio 37.4
[2019-01-21 09:00] VITALS: BP 117/64
[2019-01-21] MEDS: SODIUM CHLORIDE 0.9% 1,000 ML IV SCH ×2 (10:17→11:35)
[2019-01-21] MEDS: LEVOFLOXACIN 250MG 50 ML IV SCH (10:17)
[2019-01-21] MEDS: methylPREDNISolone SOD SUCC 125 MG/2 ML VL IV SCH ×2 (10:17→21:32)
[2019-01-21] MEDS ORDERED: CALCIUM GLUC 4.65meq/50ml D5AE 50 ML IV ONE (10:30)
[2019-01-21 13:00] VITALS: BP 133/75
[2019-01-21 16:56] VITALS: BP 126/70
[2019-01-21] MEDS ORDERED: PPN PER PHARMACY IV NR ×8 (20:00)
[2019-01-21 21:51] VITALS: BP 134/68
[2019-01-22] MEDS: metroNIDAZOLE 500MG/100ML 100 ML IV SCH ×4 (00:05→18:09)
[2019-01-22] MEDS: ACCU-CHEK COMFORT CURVE STRIP VI SCH ×2 (00:05→06:23)
[2019-01-22] MEDS: SODIUM CHLORIDE 0.9% 1,000 ML IV SCH ×2 (02:01→13:40)
[2019-01-22 05:22] VITALS: BP 134/73
[2019-01-22] MEDS: InsuLIN REG 1unit/0.01ml Soln (100units/ml) SC SCH ×2 (06:00)
[2019-01-22 06:33] LABS: Hemoglobin 9.8 g/dL (13.5-17.5)
[2019-01-22 06:35] LABS: Hematocrit 29.1 % (41.0-53.0); Mean Corpuscular Hemoglobin 26.9 pg (28.0-32.0); Mean Corpuscular Hgb Conc. 33.8 g/dL (32.0-36.0); Mean Corpuscular Volume 79.6 fL (80.0-100.0); Platelet Count (auto) 42 10^3/uL (140-450); Red Blood Cells 3.66 10^6/uL (4.5-5.90); White Blood Cell 12.6 10^3/uL (4.4-10.8)
[2019-01-22 06:40] LABS: Albumin 2.9 g/dL (3.4-5.0); Calcium 7.8 mg/dL (8.5-10.1)
[2019-01-22 06:46] LABS: Magnesium 2.8 mg/dL (1.6-2.6); Phosphorus 3.4 mg/dL (2.5-4.90); Total Protein 5.4 g/dL (6.4-8.2)
[2019-01-22 06:47] LABS: Red Cell Distribution Width 31.9 % (11.8-14.3)
[2019-01-22 06:49] LABS: Basophils % (manual) 0 (0.0-2.0); Blast Cells 0; Eosinophils % (manual) 0 (0-7); Metamyelocytes % 0; Myelocytes % 0; Promyelocytes % 0; Reactive Lymphocytes 0
[2019-01-22] MEDS ORDERED: AMIODARONE HCL (50 MG/ ML) 3 ML VIAL IV ONE ×2 (07:39→07:41)
[2019-01-22] MEDS ORDERED: D5W 5% IV ONE (07:41)
[2019-01-22 08:45] LABS: Band Neutrophils % (manual) 2; Lymphocytes % (manual) 1 (10.0-50.0); Monocytes % (manual) 10 (0-12)
[2019-01-22 09:05] VITALS: BP 137/71
[2019-01-22] MEDS: methylPREDNISolone SOD SUCC 125 MG/2 ML VL IV SCH ×2 (09:20→20:57)
[2019-01-22] MEDS: LEVOFLOXACIN 250MG 50 ML IV SCH (09:20)
[2019-01-22] MEDS ORDERED: SODIUM CHLORIDE LOCK 10 ML ONE (10:53)
[2019-01-22] MEDS ORDERED: fentaNYL CITRATE 100 MCG/2 ML VL ONE (10:53)
[2019-01-22] MEDS ORDERED: MIDAZOLAM HCL 5 MG/ML-1ML VIAL ONE (10:53)
[2019-01-22] MEDS ORDERED: diphenhdrAMINE HCL 50 MG/1 ML VL ONE (10:54)
[2019-01-22 13:39] VITALS: BP 141/77
[2019-01-22 17:30] VITALS: BP 154/85
[2019-01-22] MEDS ORDERED: PPN PER PHARMACY IV NR ×8 (20:00)
[2019-01-22 22:05] VITALS: BP 142/75
[2019-01-23] MEDS: metroNIDAZOLE 500MG/100ML 100 ML IV SCH ×3 (00:30→11:52)
[2019-01-23] MEDS: SODIUM CHLORIDE 0.9% 1,000 ML IV SCH (03:06)
[2019-01-23 04:30] VITALS: BP_SYST 132; BP_SYST 97; BP_DIAS 54; BP_DIAS 88
[2019-01-23 06:46] LABS: Basophils # (auto) 0 uL; Eosinophils # (auto) 0 uL; Hemoglobin 9.7 g/dL (13.5-17.5); Mean Corpuscular Hgb Conc. 34.2 g/dL (32.0-36.0); White Blood Cell 11.8 10^3/uL (4.4-10.8)
[2019-01-23 06:54] LABS: Potassium 3.9 mmol/L (3.5-5.1)
[2019-01-23 06:56] LABS: Basophils % (auto) 0.2 % (0.0-2.0); Eosinophils % (auto) 0.3 % (0.0-7.0); Hematocrit 28.3 % (41.0-53.0); Lymphocytes # (auto) 0.5 uL; Lymphocytes % (auto) 4.2 % (10.0-50.0); Mean Corpuscular Hemoglobin 26.9 pg (28.0-32.0); Mean Corpuscular Volume 78.6 fL (80.0-100.0); Monocytes # (auto) 1.6 uL; Monocytes % (auto) 13.4 % (0.0-12.0); Neutrophils # (auto) 9.7 uL; Neutrophils % (auto) 81.9 % (37.0-80.0); Nucleated Red Blood Cells % 0.6 %; Platelet Count (auto) 36 10^3/uL (140-450)
[2019-01-23 07:01] LABS: BUN/Creatinine Ratio 43.6; Calcium 7.6 mg/dL (8.5-10.1)
[2019-01-23 07:19] LABS: Red Cell Distribution Width 32.4 % (11.8-14.3)
[2019-01-23 07:48] VITALS: BP 127/80
[2019-01-23] MEDS: JAKAFI 10 MG PO SCH ×2 (09:58→21:33)
[2019-01-23] MEDS: LEVOFLOXACIN 250MG 50 ML IV SCH (10:01)
[2019-01-23] MEDS: methylPREDNISolone SOD SUCC 125 MG/2 ML VL IV SCH (10:02)
[2019-01-23 11:39] VITALS: BP 150/75
[2019-01-23 16:37] VITALS: BP 144/88
[2019-01-23] MEDS: predniSONE 20 MG TAB PO SCH ×2 (17:26→21:33)
[2019-01-23] MEDS: metroNIDAZOLE 500 MG TAB PO SCH ×2 (17:27→21:33)
[2019-01-23] MEDS: TAMSULOSIN HYDROCHLORIDE 0.4 MG CAP PO SCH (17:36)
[2019-01-23 22:00] VITALS: BP 127/72
[2019-01-24 04:56] VITALS: BP 113/62
[2019-01-24] MEDS: metroNIDAZOLE 500 MG TAB PO SCH ×3 (05:14→22:16)
[2019-01-24] MEDS: predniSONE 20 MG TAB PO SCH ×3 (05:14→22:16)
[2019-01-24 06:40] LABS: Eosinophils # (auto) 0 uL; Eosinophils % (auto) 0.1 % (0.0-7.0); Hematocrit 26.9 % (41.0-53.0); Hemoglobin 9.4 g/dL (13.5-17.5); Lymphocytes # (auto) 0.9 uL; Lymphocytes % (auto) 8.7 % (10.0-50.0); Mean Corpuscular Hemoglobin 27.4 pg (28.0-32.0); Mean Corpuscular Hgb Conc. 34.9 g/dL (32.0-36.0); Monocytes # (auto) 0.9 uL; Nucleated Red Blood Cells % 0.8 %
[2019-01-24 06:43] LABS: Basophils # (auto) 0.1 uL; Basophils % (auto) 0.6 % (0.0-2.0); Mean Corpuscular Volume 78.4 fL (80.0-100.0); Monocytes % (auto) 8.5 % (0.0-12.0); Neutrophils # (auto) 8.5 uL; Neutrophils % (auto) 82.1 % (37.0-80.0); Platelet Count (auto) 24 10^3/uL (140-450); Red Blood Cells 3.42 10^6/uL (4.5-5.90); White Blood Cell 10.4 10^3/uL (4.4-10.8)
[2019-01-24 06:51] LABS: BUN/Creatinine Ratio 41.5; Calcium 7.6 mg/dL (8.5-10.1); Potassium 4.1 mmol/L (3.5-5.1)
[2019-01-24 07:17] LABS: Red Cell Distribution Width 32.3 % (11.8-14.3)
[2019-01-24 08:00] VITALS: BP 128/67
[2019-01-24] MEDS ORDERED: ACETAMINOPHEN 325 MG TAB PO ONE (09:30)
[2019-01-24] MEDS ORDERED: diphenhdrAMINE HCL 50 MG/1 ML VL IV ONE (09:30)
[2019-01-24] MEDS ORDERED: IV IMMUNE GLOBULIN(IVIG) 10% 20G/200ML IV SCH (10:00)
[2019-01-24] MEDS: LEVOFLOXACIN 250MG 50 ML IV SCH (10:52)
[2019-01-24] MEDS: CLOPIDOGREL BISULFATE 75 MG TAB PO SCH (10:52)
[2019-01-24] MEDS: JAKAFI 10 MG PO SCH ×2 (10:53→22:15)
[2019-01-24 12:00] VITALS: BP 134/71
[2019-01-24 16:00] VITALS: BP 150/81
[2019-01-24] MEDS: TAMSULOSIN HYDROCHLORIDE 0.4 MG CAP PO SCH (18:30)
[2019-01-24 22:00] VITALS: BP 150/82
[2019-01-25 04:57] VITALS: BP 136/74
[2019-01-25 05:54] LABS: Hemoglobin 9.1 g/dL (13.5-17.5); Mean Corpuscular Volume 77.6 fL (80.0-100.0)
[2019-01-25 05:57] LABS: Hematocrit 25.9 % (41.0-53.0); Mean Corpuscular Hemoglobin 27.3 pg (28.0-32.0); Mean Corpuscular Hgb Conc. 35.2 g/dL (32.0-36.0); Platelet Count (auto) 32 10^3/uL (140-450); Red Blood Cells 3.34 10^6/uL (4.5-5.90); White Blood Cell 8.9 10^3/uL (4.4-10.8)
[2019-01-25 06:01] LABS: Red Cell Distribution Width 32.1 % (11.8-14.3)
[2019-01-25 06:03] LABS: Basophils % (manual) 0 (0.0-2.0); Blast Cells 0; Eosinophils % (manual) 0 (0-7); Metamyelocytes % 0; Promyelocytes % 0; Reactive Lymphocytes 0
[2019-01-25] MEDS: predniSONE 20 MG TAB PO SCH ×3 (06:22→21:37)
[2019-01-25] MEDS: metroNIDAZOLE 500 MG TAB PO SCH ×3 (06:22→21:38)
[2019-01-25 06:37] LABS: Band Neutrophils % (manual) 6; Lymphocytes % (manual) 13 (10.0-50.0); Monocytes % (manual) 5 (0-12); Myelocytes % 1
[2019-01-25 08:00] VITALS: BP 148/80
[2019-01-25] MEDS ORDERED: ACETAMINOPHEN 325 MG TAB PO ONE (09:30)
[2019-01-25] MEDS ORDERED: diphenhdrAMINE HCL 50 MG/1 ML VL IV ONE (09:30)
[2019-01-25] MEDS: LEVOFLOXACIN 250MG 50 ML IV SCH (10:00)
[2019-01-25] MEDS: CLOPIDOGREL BISULFATE 75 MG TAB PO SCH (10:00)
[2019-01-25] MEDS: JAKAFI 10 MG PO SCH ×2 (10:00→21:37)
[2019-01-25] MEDS ORDERED: IV IMMUNE GLOBULIN(IVIG) 10% 20G/200ML IV ONE ×2 (11:30→12:00)
[2019-01-25 12:00] VITALS: BP 143/89
[2019-01-25 17:00] VITALS: BP 138/83
[2019-01-25] MEDS: TAMSULOSIN HYDROCHLORIDE 0.4 MG CAP PO SCH (18:31)
[2019-01-25 22:00] VITALS: BP 143/81
[2019-01-26 05:55] VITALS: BP 150/80
[2019-01-26 06:08] LABS: Basophils # (auto) 0 uL; Eosinophils # (auto) 0 uL; Eosinophils % (auto) 0.4 % (0.0-7.0); Hemoglobin 9.4 g/dL (13.5-17.5); Lymphocytes # (auto) 1.1 uL; Monocytes # (auto) 0.7 uL; Platelet Count (auto) 21 10^3/uL (140-450)
[2019-01-26 06:10] LABS: Basophils % (auto) 0.5 % (0.0-2.0); Hematocrit 26.9 % (41.0-53.0); Lymphocytes % (auto) 10.9 % (10.0-50.0); Mean Corpuscular Hemoglobin 27.3 pg (28.0-32.0); Mean Corpuscular Hgb Conc. 34.8 g/dL (32.0-36.0); Mean Corpuscular Volume 78.4 fL (80.0-100.0); Monocytes % (auto) 7.2 % (0.0-12.0); Neutrophils # (auto) 7.9 uL; Nucleated Red Blood Cells % 1.4 %; Red Blood Cells 3.43 10^6/uL (4.5-5.90); White Blood Cell 9.7 10^3/uL (4.4-10.8)
[2019-01-26 06:16] LABS: Albumin 2.6 g/dL (3.4-5.0); BUN/Creatinine Ratio 32.7; Calcium 7.6 mg/dL (8.5-10.1); Potassium 4.3 mmol/L (3.5-5.1)
[2019-01-26 06:17] LABS: Red Cell Distribution Width 31.8 % (11.8-14.3)
[2019-01-26 06:19] LABS: Total Protein 7.7 g/dL (6.4-8.2)
[2019-01-26] MEDS: metroNIDAZOLE 500 MG TAB PO SCH ×3 (06:29→22:10)
[2019-01-26] MEDS: predniSONE 20 MG TAB PO SCH ×3 (06:29→22:10)
[2019-01-26 09:00] VITALS: BP 138/80
[2019-01-26] MEDS: CLOPIDOGREL BISULFATE 75 MG TAB PO SCH (10:21)
[2019-01-26] MEDS: POLYETHYLENE GLYCOL 17 GM PWDR PO SCH ×2 (10:21→22:10)
[2019-01-26] MEDS: JAKAFI 10 MG PO SCH ×2 (10:30→22:10)
[2019-01-26 12:10] VITALS: BP 141/86
[2019-01-26 17:00] VITALS: BP 143/85
[2019-01-26] MEDS: TAMSULOSIN HYDROCHLORIDE 0.4 MG CAP PO SCH (19:01)
[2019-01-26 22:00] VITALS: BP 144/89
[2019-01-27 05:00] VITALS: BP 115/75
[2019-01-27] MEDS: predniSONE 20 MG TAB PO SCH ×3 (06:14→23:04)
[2019-01-27] MEDS: metroNIDAZOLE 500 MG TAB PO SCH (06:15)
[2019-01-27 08:00] VITALS: BP 130/82
[2019-01-27] MEDS: CLOPIDOGREL BISULFATE 75 MG TAB PO SCH (10:00)
[2019-01-27] MEDS: POLYETHYLENE GLYCOL 17 GM PWDR PO SCH (10:42)
[2019-01-27] MEDS: JAKAFI 10 MG PO SCH ×2 (10:42→23:03)
[2019-01-27] MEDS ORDERED: MORPHINE SULF INJ 2 MG/ML SYRINGE 1ML IV PRN ×2 (11:30→11:45)
[2019-01-27 12:00] VITALS: BP 117/74
[2019-01-27 16:00] VITALS: BP 135/75
[2019-01-27] MEDS: TAMSULOSIN HYDROCHLORIDE 0.4 MG CAP PO SCH (17:39)
[2019-01-27 22:00] VITALS: BP 124/80
[2019-01-28 05:00] VITALS: BP 110/62
[2019-01-28] MEDS: predniSONE 20 MG TAB PO SCH ×2 (06:35→14:01)
[2019-01-28 06:44] LABS: Hematocrit 27.4 % (41.0-53.0); Hemoglobin 9.5 g/dL (13.5-17.5); Mean Corpuscular Hemoglobin 27.2 pg (28.0-32.0); Mean Corpuscular Hgb Conc. 34.5 g/dL (32.0-36.0); Mean Corpuscular Volume 78.8 fL (80.0-100.0); Platelet Count (auto) 34 10^3/uL (140-450); Red Blood Cells 3.48 10^6/uL (4.5-5.90); White Blood Cell 15.6 10^3/uL (4.4-10.8)
[2019-01-28 06:47] LABS: Red Cell Distribution Width 32.4 % (11.8-14.3)
[2019-01-28 06:48] LABS: Basophils % (manual) 0 (0.0-2.0); Blast Cells 0; Eosinophils % (manual) 0 (0-7); Metamyelocytes % 0; Myelocytes % 0; Promyelocytes % 0; Reactive Lymphocytes 0
[2019-01-28 08:19] LABS: Band Neutrophils % (manual) 12; Lymphocytes % (manual) 13 (10.0-50.0); Monocytes % (manual) 3 (0-12)
[2019-01-28 09:00] VITALS: BP 130/70
[2019-01-28] MEDS: JAKAFI 10 MG PO SCH (09:51)
[2019-01-28 12:44] VITALS: BP 138/80
[2019-01-28 13:00] VITALS: BP 138/80
[2019-01-28] MEDS: TAMSULOSIN HYDROCHLORIDE 0.4 MG CAP PO SCH (17:20)
== END 2019-01-28 18:25 | disposition home or self-care (01) | DRG 389 ==
LOC: ER 09:11 → TELE 13:24 → TELE-EAST 15:41 → EAST 01-22 21:27
PROVIDERS: ADMIT Nurse Practitioner Acute Care; ATTEND Internal Medicine
PROC: 0D9670Z Drainage of Stomach with Drainage Device, Via Natural or Artificial Opening (ICD-10-PCS; 2019-01-20)
PROC: 0DBQ8ZX Excision of Anus, Via Natural or Artificial Opening Endoscopic, Diagnostic (ICD-10-PCS; principal; 2019-01-22 11:31)
DX: K56.600 Partial intestinal obstruction, unspecified as to cause (principal); D69.3 Immune thrombocytopenic purpura; C19 Malignant neoplasm of rectosigmoid junction; K57.90 Diverticulosis of intestine, part unspecified, without perforation or abscess without bleeding; N18.3 Chronic kidney disease, stage 3 (moderate); E86.0 Dehydration; E78.00 Pure hypercholesterolemia, unspecified; D45 Polycythemia vera; D63.8 Anemia in other chronic diseases classified elsewhere; E78.5 Hyperlipidemia, unspecified; K56.601 Complete intestinal obstruction, unspecified as to cause; W18.39XA Other fall on same level, initial encounter; N40.0 Benign prostatic hyperplasia without lower urinary tract symptoms; Z85.048 Personal history of other malignant neoplasm of rectum, rectosigmoid junction, and anus; Z86.2 Personal history of diseases of the blood and blood-forming organs and certain disorders involving the immune mechanism; Z85.828 Personal history of other malignant neoplasm of skin; Z86.73 Personal history of transient ischemic attack (TIA), and cerebral infarction without residual deficits; Z79.02 Long term (current) use of antithrombotics/antiplatelets; Z87.11 Personal history of peptic ulcer disease; Z90.49 Acquired absence of other specified parts of digestive tract; Y93.89 Activity, other specified; Y92.89 Other specified places as the place of occurrence of the external cause; Y99.8 Other external cause status; Z79.899 Other long term (current) drug therapy; Z88.1 Allergy status to other antibiotic agents; Z88.8 Allergy status to other drugs, medicaments and biological substances
CPT/HCPCS: 36415; 70486; 71045; 74018; 74021; 74176; 74250; 80048; 80053; 80061; 80198; 82040; 82962; 83605; 83735; 84100; 84484; 85007; 85025; 85027; 85610; 85730; 86850; 86900; 86901; 87040; 93005; 96361; 96365; 96367; 97110; 97116; 97530; A6257; G0378; J0610; J1561; J1815; J2250; J2405; J2543; J3490; J7060

== ENCOUNTER → 2019-02-06 | Outpatient (CLI) | payer MEDICARE, OTHER ==
[~2019-02-06] MED LIST changes: -DORZ1SOL2 OP; +POM; +PRE5T PO; -TADA20TA PO
[2019-02-06 09:03] LABS: Eosinophils # (auto) 0 uL; Hemoglobin 9.8 g/dL (13.5-17.5); Lymphocytes # (auto) 1.8 uL; Lymphocytes % (auto) 12.4 % (10.0-50.0)
[2019-02-06 09:05] LABS: Basophils # (auto) 0.1 uL; Basophils % (auto) 0.4 % (0.0-2.0); Eosinophils % (auto) 0.2 % (0.0-7.0); Hematocrit 29.7 % (41.0-53.0); Monocytes # (auto) 1.1 uL; Monocytes % (auto) 7.9 % (0.0-12.0); Neutrophils # (auto) 11.5 uL; Neutrophils % (auto) 79.1 % (37.0-80.0); Nucleated Red Blood Cells % 2.4 %; Platelet Count (auto) 30 10^3/uL (140-450); White Blood Cell 14.5 10^3/uL (4.4-10.8)
== END | disposition home or self-care (01) ==
LOC: LAB 08:40
PROVIDERS: ATTEND Internal Medicine
DX: E78.00 Pure hypercholesterolemia, unspecified (principal); G70.9 Myoneural disorder, unspecified; D45 Polycythemia vera; N18.3 Chronic kidney disease, stage 3 (moderate); R53.1 Weakness; R26.2 Difficulty in walking, not elsewhere classified; N28.9 Disorder of kidney and ureter, unspecified; K56.609 Unspecified intestinal obstruction, unspecified as to partial versus complete obstruction; D69.3 Immune thrombocytopenic purpura; Z85.828 Personal history of other malignant neoplasm of skin
CPT/HCPCS: 36415; 85025

== ENCOUNTER → 2019-05-08 | Outpatient (CLI) | payer MEDICARE, OTHER ==
[2019-05-08 08:39] LABS: Basophils # (auto) 0.2 uL; Basophils % (auto) 2.2 % (0.0-2.0); Eosinophils # (auto) 0.3 uL; Eosinophils % (auto) 3.5 % (0.0-7.0); Hematocrit 35.5 % (41.0-53.0); Hemoglobin 11.5 g/dL (13.5-17.5); Lymphocytes # (auto) 1.2 uL; Lymphocytes % (auto) 16.6 % (10.0-50.0); Mean Corpuscular Hemoglobin 28.6 pg (28.0-32.0); Mean Corpuscular Hgb Conc. 32.5 g/dL (32.0-36.0); Monocytes # (auto) 0.4 uL; Neutrophils # (auto) 5.3 uL; Neutrophils % (auto) 71.7 % (37.0-80.0); Nucleated Red Blood Cells % 0.2 %; Platelet Count (auto) 334 10^3/uL (140-450); Red Blood Cells 4.03 10^6/uL (4.5-5.90); White Blood Cell 7.3 10^3/uL (4.4-10.8)
[2019-05-08 09:43] LABS: Albumin 3.2 g/dL (3.4-5.0); BUN/Creatinine Ratio 21.4; Calcium 8.8 mg/dL (8.5-10.1); Potassium 4.2 mmol/L (3.5-5.1)
[2019-05-08 09:46] LABS: Bilirubin, Total 0.7 mg/dL (0.2-1.0); Total Protein 6.7 g/dL (6.4-8.2)
[2019-05-08 10:03] LABS: % Iron Saturation 19.7 % (20-55)
[2019-05-08 10:04] LABS: Ferritin 65.1 ng/mL (10-322); Folate (Folic Acid) 21.67 ng/mL (5.38-24)
== END | disposition home or self-care (01) ==
LOC: LAB 08:25
PROVIDERS: ATTEND Internal Medicine
DX: D46.9 Myelodysplastic syndrome, unspecified (principal)
CPT/HCPCS: 36415; 80053; 82607; 82728; 82746; 83540; 83550; 85025

== ENCOUNTER → 2019-05-28 | Outpatient (CLI) | payer MEDICARE, OTHER | END | disposition home or self-care (01) | LOC: LAB 14:57 | PROVIDERS: ATTEND Internal Medicine Gastroenterology | DX: R19.7 Diarrhea, unspecified (principal) | CPT/HCPCS: 87045; 87427; 87493; 87899 ==

== ENCOUNTER → 2019-07-03 | Outpatient (CLI) | payer MEDICARE, OTHER ==
[2019-07-03 11:19] LABS: Eosinophils # (auto) 0.1 uL; Hemoglobin 11.7 g/dL (13.5-17.5); Lymphocytes # (auto) 1.1 uL; Monocytes # (auto) 0.6 uL; Monocytes % (auto) 8.2 % (0.0-12.0)
[2019-07-03 11:21] LABS: Basophils # (auto) 0.2 uL; Basophils % (auto) 2.6 % (0.0-2.0); Eosinophils % (auto) 1.6 % (0.0-7.0); Hematocrit 35.3 % (41.0-53.0); Lymphocytes % (auto) 15.2 % (10.0-50.0); Mean Corpuscular Hemoglobin 24.4 pg (28.0-32.0); Mean Corpuscular Hgb Conc. 33.1 g/dL (32.0-36.0); Mean Corpuscular Volume 73.7 fL (80.0-100.0); Neutrophils # (auto) 5.2 uL; Neutrophils % (auto) 72.4 % (37.0-80.0); Nucleated Red Blood Cells % 0.3 %; Platelet Count (auto) 323 10^3/uL (140-450); Red Blood Cells 4.79 10^6/uL (4.5-5.90); Red Cell Distribution Width 22.7 % (11.8-14.3); White Blood Cell 7.2 10^3/uL (4.4-10.8)
[2019-07-03 11:54] LABS: % Iron Saturation 12.5 % (20-55); Potassium 4.3 mmol/L (3.5-5.1)
[2019-07-03 11:58] LABS: Ferritin 16.5 ng/mL (10-322)
[2019-07-03 11:59] LABS: Folate (Folic Acid) > 24.00 ng/mL (5.38-24)
[2019-07-03 12:03] LABS: Albumin 3.8 g/dL (3.4-5.0); BUN/Creatinine Ratio 19.6; Bilirubin, Total 0.6 mg/dL (0.2-1.0); Calcium 9.3 mg/dL (8.5-10.1)
== END | disposition home or self-care (01) ==
LOC: LAB 10:54
PROVIDERS: ATTEND Internal Medicine
DX: D46.9 Myelodysplastic syndrome, unspecified (principal)
CPT/HCPCS: 36415; 80053; 82607; 82728; 82746; 83540; 83550; 85025

== ENCOUNTER → 2019-10-06 | Outpatient (CLI) | payer MEDICARE, OTHER ==
[2019-10-06 10:33] LABS: Hemoglobin 12.4 g/dL (13.5-17.5); White Blood Cell 8.4 10^3/uL (4.4-10.8)
[2019-10-06 10:35] LABS: Hematocrit 36.1 % (41.0-53.0); Mean Corpuscular Hemoglobin 24.8 pg (28.0-32.0); Mean Corpuscular Hgb Conc. 34.4 g/dL (32.0-36.0); Mean Corpuscular Volume 72.1 fL (80.0-100.0); Platelet Count (auto) 127 10^3/uL (140-450); Red Cell Distribution Width 27.3 % (11.8-14.3)
[2019-10-06 10:41] LABS: Basophils % (manual) 0 (0.0-2.0); Blast Cells 0; Eosinophils % (manual) 0 (0-7); Metamyelocytes % 0; Myelocytes % 0; Promyelocytes % 0; Reactive Lymphocytes 0
[2019-10-06 11:34] LABS: Potassium 4.3 mmol/L (3.5-5.1)
[2019-10-06 11:37] LABS: % Iron Saturation 75.9 % (20-55)
[2019-10-06 11:40] LABS: Band Neutrophils % (manual) 1; Lymphocytes % (manual) 18 (10.0-50.0); Monocytes % (manual) 9 (0-12)
[2019-10-06 11:43] LABS: Albumin 3.9 g/dL (3.4-5.0); BUN/Creatinine Ratio 17.2; Bilirubin, Total 0.9 mg/dL (0.2-1.0); Calcium 8.4 mg/dL (8.5-10.1); Total Protein 7.2 g/dL (6.4-8.2)
== END | disposition home or self-care (01) ==
LOC: LAB 10:17
PROVIDERS: ATTEND Internal Medicine
DX: D46.9 Myelodysplastic syndrome, unspecified (principal)
CPT/HCPCS: 36415; 80053; 82728; 83540; 83550; 83615; 85007; 85027

== ENCOUNTER → 2019-11-11 | Outpatient (CLI) | payer MEDICARE, OTHER ==
[2019-11-11 11:33] LABS: Hemoglobin 12.3 g/dL (13.5-17.5); White Blood Cell 8.5 10^3/uL (4.4-10.8)
[2019-11-11 11:35] LABS: Hematocrit 36.6 % (41.0-53.0); Mean Corpuscular Hemoglobin 25.1 pg (28.0-32.0); Mean Corpuscular Hgb Conc. 33.6 g/dL (32.0-36.0); Mean Corpuscular Volume 74.7 fL (80.0-100.0); Platelet Count (auto) 84 10^3/uL (140-450)
[2019-11-11 11:37] LABS: Red Cell Distribution Width 26.8 % (11.8-14.3)
[2019-11-11 11:40] LABS: Basophils % (manual) 0 (0.0-2.0); Blast Cells 0; Eosinophils % (manual) 0 (0-7); Metamyelocytes % 0; Myelocytes % 0; Promyelocytes % 0; Reactive Lymphocytes 0
[2019-11-11 11:50] LABS: Albumin 4.1 g/dL (3.4-5.0); Calcium 9.2 mg/dL (8.5-10.1); Potassium 4.7 mmol/L (3.5-5.1)
[2019-11-11 11:54] LABS: Bilirubin, Total 0.9 mg/dL (0.2-1.0); Total Protein 7.3 g/dL (6.4-8.2)
[2019-11-11 13:05] LABS: Band Neutrophils % (manual) 6; Lymphocytes % (manual) 20 (10.0-50.0); Monocytes % (manual) 2 (0-12)
== END | disposition home or self-care (01) ==
LOC: LAB 11:17
PROVIDERS: ATTEND Internal Medicine Hematology & Oncology
DX: D46.9 Myelodysplastic syndrome, unspecified (principal)
CPT/HCPCS: 36415; 80053; 83615; 85007; 85027

== ENCOUNTER → 2019-12-04 | Outpatient (CLI) | payer MEDICARE, OTHER ==
[2019-12-04 12:35] LABS: Urine Bacteria NONE SEEN /hpf (None Seen); Urine Blood Negative /uL (Negative); Urine Specific Gravity 1.019 (1.001-1.035); Urine WBC <1 /hpf (0 - 3)
[2019-12-04 12:43] LABS: Calcium 9.4 mg/dL (8.5-10.1); Potassium 4.6 mmol/L (3.5-5.1)
[2019-12-04 12:51] LABS: BUN/Creatinine Ratio 17.3; Total Protein 7.3 g/dL (6.4-8.2)
== END | disposition home or self-care (01) ==
LOC: LAB 11:48
PROVIDERS: ATTEND Nurse Practitioner
DX: E78.5 Hyperlipidemia, unspecified (principal)
CPT/HCPCS: 36415; 80053; 80061; 81001; 84443

== ENCOUNTER → 2020-06-03 | Outpatient (CLI) | payer MEDICARE, OTHER ==
[~2020-06-03] MED LIST changes: -LATA0.0015 EACHEYE; +LATA0.0019 EACHEYE
[2020-06-03 09:17] LABS: Hemoglobin 11.1 g/dL (13.5-17.5); Mean Corpuscular Hgb Conc. 32.5 g/dL (32.0-36.0)
[2020-06-03 09:18] LABS: Mean Corpuscular Hemoglobin 25.4 pg (28.0-32.0); Mean Corpuscular Volume 78.2 fL (80.0-100.0); Platelet Count (auto) 155 10^3/uL (140-450); Red Blood Cells 4.35 10^6/uL (4.5-5.90); White Blood Cell 10.9 10^3/uL (4.4-10.8)
[2020-06-03 09:19] LABS: Red Cell Distribution Width 25.4 % (11.8-14.3)
[2020-06-03 09:20] LABS: Band Neutrophils % (manual) 0; Basophils % (manual) 0 (0.0-2.0); Blast Cells 0; Metamyelocytes % 0; Myelocytes % 0; Promyelocytes % 0; Reactive Lymphocytes 0
[2020-06-03 09:31] LABS: Urine Bacteria NONE SEEN /hpf (None Seen); Urine Blood Negative /uL (Negative); Urine Mucus FEW (None Seen); Urine Specific Gravity 1.024 (1.001-1.035); Urine WBC 1 /hpf (0 - 3)
[2020-06-03 09:58] LABS: Albumin 3.8 g/dL (3.4-5.0); Calcium 8.7 mg/dL (8.5-10.1); Potassium 4.5 mmol/L (3.5-5.1)
[2020-06-03 10:03] LABS: BUN/Creatinine Ratio 14.9; Bilirubin, Total 1.3 mg/dL (0.2-1.0); Total Protein 7.2 g/dL (6.4-8.2)
[2020-06-03 10:08] LABS: Eosinophils % (manual) 1 (0-7); Lymphocytes % (manual) 9 (10.0-50.0); Monocytes % (manual) 7 (0-12)
== END | disposition home or self-care (01) ==
LOC: LAB 08:56
PROVIDERS: ATTEND Nurse Practitioner
DX: E78.5 Hyperlipidemia, unspecified (principal)
CPT/HCPCS: 36415; 80053; 80061; 81001; 84443; 85007; 85027

== ENCOUNTER → 2020-07-22 | Outpatient (CLI) | payer MEDICARE, OTHER ==
[2020-07-22 10:54] LABS: Urine Blood Negative /uL (Negative); Urine Specific Gravity 1.022 (1.001-1.035)
[2020-07-22 11:15] LABS: INR 1.12 (0.9-1.15); Partial Thromboplastin Time 33.5 sec (23.0-31.2)
[2020-07-22 11:20] LABS: Mean Corpuscular Volume 77.8 fL (80.0-100.0); White Blood Cell 7.5 10^3/uL (4.4-10.8)
[2020-07-22 11:22] LABS: Hematocrit 28.7 % (41.0-53.0); Hemoglobin 9.5 g/dL (13.5-17.5); Mean Corpuscular Hemoglobin 25.8 pg (28.0-32.0); Mean Corpuscular Hgb Conc. 33.2 g/dL (32.0-36.0); Platelet Count (auto) 144 10^3/uL (140-450); Red Blood Cells 3.69 10^6/uL (4.5-5.90)
[2020-07-22 11:23] LABS: Albumin 3.4 g/dL (3.4-5.0); Calcium 8.6 mg/dL (8.5-10.1); Potassium 4.3 mmol/L (3.5-5.1)
[2020-07-22 11:25] LABS: Red Cell Distribution Width 25.3 % (11.8-14.3)
[2020-07-22 11:27] LABS: BUN/Creatinine Ratio 14.8; Basophils % (manual) 0 (0.0-2.0); Bilirubin, Total 1.3 mg/dL (0.2-1.0); Blast Cells 0; Myelocytes % 0; Promyelocytes % 0; Total Protein 6.7 g/dL (6.4-8.2)
[2020-07-22 12:24] LABS: Band Neutrophils % (manual) 6; Eosinophils % (manual) 2 (0-7); Lymphocytes % (manual) 14 (10.0-50.0); Metamyelocytes % 3; Monocytes % (manual) 8 (0-12); Reactive Lymphocytes 1
== END | disposition home or self-care (01) ==
LOC: LAB 10:28
PROVIDERS: ATTEND Nurse Practitioner
DX: Z01.818 Encounter for other preprocedural examination (principal); Z01.812 Encounter for preprocedural laboratory examination; Z01.810 Encounter for preprocedural cardiovascular examination; D69.3 Immune thrombocytopenic purpura; Z85.048 Personal history of other malignant neoplasm of rectum, rectosigmoid junction, and anus
CPT/HCPCS: 36415; 80053; 81003; 85007; 85027; 85610; 85730